=== PATIENT | male | born 1990 | race Two or more races ===

== ENCOUNTER 2018-06-15 05:37 | Emergency (ER) | payer SELFPAY ==
[2018-06-15 05:45] VITALS: BP 132/84; PULSE 79; RESP 17; TEMP 97.8; O2SAT 98
--- NOTE | 2018-06-15 06:08 | ED PDOC ---
HPI: Psych/Substance Abuse Time Seen by Provider: 06/15/18 05:40 Chief Complaint (Nursing): Alcohol Ingestion Chief Complaint (Provider): Alcohol Ingestion History Per: Patient, EMS History/Exam Limitations: no limitations Onset/Duration Of Symptoms: Mins (prior to arrival) Current Symptoms Are (Timing): Better Additional Complaint(s): 28 year old [place] male with no pmhx presents to the ED via EMS for evaluation of public intoxication after being found sleeping outside. At this time, patient is awake and alert, with no complaints. He is requesting to be discharged in order to Uber home. PMD: none provided Past Medical History Reviewed: Historical Data, Nursing Documentation, Vital Signs Vital Signs: Last Vital Signs Temp 97.8 F 06/15/18 05:42 Pulse 79 06/15/18 05:42 Resp 17 06/15/18 05:42 BP 132/84 06/15/18 05:42 Pulse Ox 98 06/15/18 05:42 - Medical History PMH: No Chronic Diseases - Surgical History Surgical History: No Surg Hx - Family History Family History: States: Unknown Family Hx - Social History Current smoker - smoking cessation education provided: No Alcohol: Occasional Drugs: Denies - Allergies Allergies/Adverse Reactions: Allergies Allergy/AdvReac Type Severity Reaction Status Date / Time No Known Allergies Allergy Verified 06/15/18 05:42 Review of Systems ROS Statement: Except As Marked, All Systems Reviewed And Found Negative Psych: Positive for: Other (possible alcohol intoxication) Physical Exam - Reviewed Nursing Documentation Reviewed: Yes Vital Signs Reviewed: Yes - Physical Exam Appears: Positive for: No Acute Distress Head Exam: Positive for: ATRAUMATIC, NORMOCEPHALIC Skin: Positive for: Normal Color Eye Exam: Positive for: Normal appearance Neurologic/Psych: Positive for: Alert (and awake), Oriented (x3), Gait (steady) , Other (clear speech) - ECG O2 Sat by Pulse Oximetry: 98 (RA) Pulse Ox Interpretation: Normal Medical Decision Making Medical Decision Making: Time: 544 Impression: 28 year old [place] male for alcohol use Initial Plan: --At this time, patient is declining any medical treatment or attention, and is requesting to be d/c. Based on the PE findings, pt is stable for d/c with diagnosis of alcohol use. Scribe Attestation: Documented by Edda Joy, acting as a scribe for Leo Melendez MD. Provider Scribe Attestation: All medical record entries made by the Scribe were at my direction and personally dictated by me. I have reviewed the chart and agree that the record accurately reflects my personal performance of the history, physical exam, medical decision making, and the department course for this patient. I have also personally directed, reviewed, and agree with the discharge instructions and disposition. Disposition - Clinical Impression Clinical Impression: Alcohol use - Patient ED Disposition Is Patient to be Admitted: No Counseled Patient/Family Regarding: Diagnosis - Disposition Disposition: Routine/Home Disposition Time: 05:50 Condition: STABLE Instructions: Alcohol Use - When Is Drinking a Problem? Forms: [employer] (Azeri)
== END 2018-06-15 05:53 | disposition home or self-care (01) ==
LOC: H.ER 05:37
DX: F10.10 Alcohol abuse, uncomplicated (principal)